=== PATIENT | female | born 1975 | race Caucasian/White ===

== ENCOUNTER 2019-02-05 11:28 | Emergency (ER) | payer OTHER ==
[~2019-02-05] VITALS: Wt 110.0 kg
[~2019-02-05 11:28] MED LIST: PREN1TAB12 PO
[2019-02-05 11:32] VITALS: BP 140/89; PULSE 89; RESP 18
[2019-02-05] MEDS ORDERED: DIAZEPAM 5 MG TAB PO ONE (12:30)
[2019-02-05] MEDS ORDERED: LIDOCAINE 1% (MPF) 5 ML VIAL INFIL ONE (12:30)
[2019-02-05] MEDS ORDERED: SULF1TAB31 PO (13:15)
--- NOTE | 2019-02-05 19:53 | ERD ---
ER Documentation Chief Complaint Chief Complaint POSSIBLE ABCESS ON VAGINAL AREA HPI 43 year old F presents to the ED complaining of a recurrent abscess to her vaginal area, progressively growing and painful for the past 5 days. Pt states she has had these same sx reoccur for the past 5 years, her last abscess was a bout 3 months ago. She states these abscesses usually spontaneously drain but today's abscess is more large and painful than previous. She denies any associated fevers or chills. Denies any urinary symptoms. Denies any other symptoms. Of note, pt also is complaining of increased thirst. ROS All systems reviewed and are negative except as per history of present illness. Medications Home Meds Active Scripts Sulfamethoxazole/Trimethoprim* (Bactrim Ds* Tablet) 1 Each Tablet, 1 TAB PO BID, #14 TAB Prov:MARIE HALE PA-C 02/05/19 Reported Medications Vit/Fe Fumarate/Fa ( 1-1 Tablet) 1 Tab Tablet, 1 TAB PO DAILY 11/19/11 Allergies Allergies: Coded Allergies: acetaminophen (Verified Allergy, Intermediate, 12/27/13) hydrocodone (Verified Allergy, Intermediate, 12/27/13) No Known Allergies (Verified Allergy, Mild, 10/16/09) PMhx/Soc Medical and Surgical Hx: pt denies Medical Hx, pt denies Surgical Hx History of Surgery: No Anesthesia Reaction: No Hx Neurological Disorder: No Hx Respiratory Disorders: No Hx Cardiac Disorders: No Hx Psychiatric Problems: No Hx Miscellaneous Medical Probl: No Hx Alcohol Use: No Hx Substance Use: No Hx Tobacco Use: No Smoking Status: Never smoker FmHx Family History: No diabetes Physical Exam Vitals Vital Signs Date Temp Pulse Resp B/P (MAP) Pulse Ox O2 O2 Flow FiO2 Time Delivery Rate 02/05/19 98.1 89 18 140/89 99 11:32 (106) Physical Exam Const: No acute distress Head: Atraumatic Eyes: Normal Conjunctiva ENT: Normal External Ears, Nose and Mouth. Neck: Full range of motion. No meningismus. Abd: Soft, non tender, non distended. Normal bowel sounds Pelvic Exam: + tender fluctuant mass in the upper right medial labia majora with surrounding erythema. Skin: No petechiae or rashes Neur: Awake and alert Psych: Normal Mood and Affect Results 24 hrs Laboratory Tests Test 02/05/19 12:49 Bedside Glucose 88 mg/dL Current Medications Medications Dose Sig/Roland Start Time Status Last (Trade) Ordered Route PRN Stop Time Admin Dose Reason Admin Lidocaine 5 ml ONCE ONCE 02/05/19 DC (Xylocaine INFIL 12:30 02/05/19 1% (Mpf)) 12:31 Diazepam 5 mg ONCE ONCE 02/05/19 DC 02/05/19 (Valium) PO 12:30 02/05/19 12:26 12:31 Procedures/MDM LABS POC glucose: 88 Abscess Incision and Drainage with irrigation by me: Location: Right upper medial labia majora Anesthesia: 1% lidocaine, local Technique: Area prepped with lidocaine, small incision made with 11 blade scalpel. Packing: None Complications: None MEDICAL DECISION MAKIN yo F presents with recurrent bartholin abscess. Incision and drainage performed with significant amount of foul smelling purulent discharge. Pt had significant improvement status post procedure. She has no fever here and vital signs are normal. I have low suspicion for sepsis, deep space infection, or foreign body. She was discharged home with PO abx. Recommended Epsom salt baths for the next 4 days and PCP follow in one week. May need referral to general surgery for definite treatment of her recurrent abscesses. Strict return precautions discussed. Of note, pt also complained of increased thirst. POC glucose 88. She has no evidence of DM. I have low suspicion for DKA or HHOS. PRESCRIPTIONS: Bactrim SPECIALIST FOLLOW UP RECOMMENDED: general surgery Patient has been advised to follow up with primary care in 1-2 days. Departure Diagnosis: Primary Impression: Bartholin's gland abscess Condition: Stable Patient Instructions: Bartholin's Cyst (I And D) Referrals: [facility] YOU HAVE RECEIVED A MEDICAL SCREENING EXAM AND THE RESULTS INDICATE THAT YOU DO NOT HAVE A CONDITION THAT REQUIRES URGENT TREATMENT IN THE EMERGENCY DEPARTMENT. FURTHER EVALUATION AND TREATMENT OF YOUR CONDITION CAN WAIT UNTIL YOU ARE SEEN IN YOUR DOCTORS OFFICE WITHIN THE NEXT 1-2 DAYS. IT IS YOUR RESPONSIBILITY TO MAKE AN APPOINTMENT FOR FOLOW-UP CARE. IF YOU HAVE A PRIMARY DOCTOR --you should call your primary doctor and schedule an appointment IF YOU DO NOT HAVE A PRIMARY DOCTOR YOU CAN CALL OUR PHYSICIAN REFERRAL HOTLINE AT IF YOU CAN NOT AFFORD TO SEE A PHYSICIAN YOU CAN CHOSE FROM THE FOLLOWING [facility] [address] [place] [facility] [address] [facility] [address] [facility] [address] [facility] [address] [facility]. [facility] [address] [facility]. [facility] YOU HAVE RECEIVED A MEDICAL SCREENING EXAM AND THE RESULTS INDICATE THAT YOU DO NOT HAVE A CONDITION THAT REQUIRES URGENT TREATMENT IN THE EMERGENCY DEPARTMENT. FURTHER EVALUATION AND TREATMENT OF YOUR CONDITION CAN WAIT UNTIL YOU ARE SEEN IN YOUR DOCTORS OFFICE WITHIN THE NEXT 1-2 DAYS. IT IS YOUR RESPONSIBILITY TO MAKE AN APPOINTMENT FOR FOLOW-UP CARE. IF YOU HAVE A PRIMARY DOCTOR --you should call your primary doctor and schedule and appointment IF YOU DO NOT HAVE A PRIMARY DOCTOR YOU CAN CALL OUR PHYSICIAN REFERRAL HOTLINE AT . IF YOU CAN NOT AFFORD TO SEE A PHYSICIAN YOU CAN CHOSE FROM THE FOLLOWING [facility] INSTITUTIONS: [facility] [address] [place] [address] [facility] [address] [place] [address] [facility] + [facility] [address] [place] [address] Additional Instructions: Take the antibiotics for the next 7 days. I recommend Epsom salt baths for at least 10 minutes 2 times a day for the next 4 days. He should see your primary care provider and asked to be referred to general surgery for removal of your Bartholin glands to prevent reinfection and abscesses. Monitor for any fevers or chills. Return here for any new or worsening symptoms. MARIE HALE PA-C Feb 05, 2019 19:53
== END 2019-02-05 13:34 | disposition home or self-care (01) ==
LOC: FTE 11:28
DX: N75.1 Abscess of Bartholin's gland (principal)
CPT/HCPCS: 56420; 82962; Z7502; Z7610

== ENCOUNTER 2019-02-14 11:30 | Emergency (ER) | payer OTHER ==
[~2019-02-14] VITALS: Ht 152.4 cm; Wt 115.0 kg
[~2019-02-14 11:30] MED LIST changes: +SULF1TAB31 PO
[2019-02-14 11:33] VITALS: BP 154/80; PULSE 70; RESP 18; Ht 152.4 cm; Wt 115.0 kg
[2019-02-14] MEDS ORDERED: KETOROLAC 60 MG INJ IM STA (12:15)
--- NOTE | 2019-02-14 12:27 | ERD ---
ER Documentation Chief Complaint Chief Complaint HAD COLONOSCOPY LAST WEDNESDAY, SINCE WEDNESDAY LEG WEAKNESS HPI Patient is a 43 years old female presenting to the clinic for bilateral lower l eg weakness since Wednesday. Patient reports of a colonoscopy and endoscopy on . Patient reports of severe sharp bilateral lower leg pain that starts from her gluteal region. Patient reports of dry mouth with increased water intake. but denies dysuria, urinary frequency/urgency, stool/urinary incontinence. Patient reports taking OTC Ibuprofen without resolution. Patient reports of left lower foot swelling. Patient reports her last lab work-up showed normal sugar levels by her PCP. ROS All systems reviewed and are negative except as per history of present illness. Medications Home Meds Active Scripts Methylprednisolone* (Medrol* DOSE PACK) 4 Mg/Dose-Pack Tab.ds.pk, 4 MG PO . DIRECTED for 5 Days, PACKET Prov:ANH RYAN PA-C 02/14/19 Meloxicam* (Meloxicam*) 7.5 Mg Tablet, 7.5 MG PO DAILY, #30 TAB Prov:ANH RYAN PA-C 02/14/19 Sulfamethoxazole/Trimethoprim* (Bactrim Ds* Tablet) 1 Each Tablet, 1 TAB PO BID, #14 TAB Prov:YUSEFIGRMARIE MALIK PA-C 02/05/19 Reported Medications Vit/Fe Fumarate/Fa ( 1-1 Tablet) 1 Tab Tablet, 1 TAB PO DAILY 11/19/11 Allergies Allergies: Coded Allergies: hydrocodone (Verified Allergy, Intermediate, 12/27/13) codeine (Verified Allergy, Unknown, 02/14/19) PMhx/Soc Medical and Surgical Hx: pt denies Medical Hx, pt denies Surgical Hx History of Surgery: No Anesthesia Reaction: No Hx Neurological Disorder: No Hx Respiratory Disorders: No Hx Cardiac Disorders: No Hx Psychiatric Problems: No Hx Miscellaneous Medical Probl: No Hx Alcohol Use: No Hx Substance Use: No Hx Tobacco Use: No Physical Exam Vitals Vital Signs Date Temp Pulse Resp B/P (MAP) Pulse Ox O2 O2 Flow FiO2 Time Delivery Rate 02/14/19 98.5 70 18 154/80 99 11:33 (104) Physical Exam Const: No acute distress Head: Atraumatic Eyes: Normal Conjunctiva ENT: Normal External Ears, Nose. No lesion noted in oral exam with mild dental carries and discolored right buccal mucosa. Neck: Full range of motion. No meningismus. Resp: Clear to auscultation bilaterally Cardio: Regular rate and rhythm, no murmurs Abd: Soft, non tender, non distended. Normal bowel sounds Skin: No petechiae or rashes Back: Tenderness to mid bilateral gluteal region that follows the sciatic nerve distribution. Ext: No cyanosis, or edema noted. 2+ Pedal pulse bilaterally. Neur: Awake and alert. Sensation intact. Psych: Normal Mood and Affect Results 24 hrs Laboratory Tests Test 02/14/19 12:38 02/14/19 12:39 POC Beta HCG, Qualitative NEGATIVE Bedside Glucose 99 mg/dL Current Medications Medications Dose Sig/Roland Start Time Status Last (Trade) Ordered Route PRN Stop Time Admin Dose Reason Admin 10 mg ONCE ONCE 02/14/19 DC 02/14/19 Dexamethasone IM 12:30 12:47 (Decadron) 02/14/19 12:31 Ketorolac 60 mg ONCE STAT 02/14/19 DC 02/14/19 Tromethamine IM 12:15 12:47 (Toradol) 02/14/19 12:17 Procedures/MDM Patient was seen and evaluated for bilateral lower leg weakness and pain which most likely represents sciatica (bilaterally). Finger glucose reading of 99 and no further workup for diabetes is required. No signs of edema noted and so lower extremity ultrasound withheld. Patient's oral exam was relatively unremarkable with mild hematoma secondary to trauma from Endoscopy. Dry mouth most likely from procedure as well and does not require no further work as there are no signs of leukoplakia. Patient was instructed to f/u with her PCP for further evaluation (possible ENT referral vs GI). Patient reports significant improvement of pain status post dexamethasone and Toradol IM. Patient is stable and ready for discharge. Departure Diagnosis: Primary Impression: Sciatica Laterality: bilateral Qualified Codes: M54.31 - Sciatica, right side; M54.32 - Sciatica, left side Condition: Stable Patient Instructions: Back Pain W/ Sciatica, Understanding Sciatica Referrals: [facility] Additional Instructions: Patient advised to return to the ED immediately for new or worsening symptoms. Patient advised to follow up with primary care provider in the next 24-48 hours. Patient verbalized understanding and agrees with treatment plan and course of action. If patient has no primary care they may follow up with [facility] + [address] [place] [address] or [facility] [address] [place] [address] or [facility] [address] [place] [address] ANH RYAN PA-C Feb 14, 2019 12:27
[2019-02-14] MEDS ORDERED: DEXAMETHASONE 10 MG/ML 1 ML INJ IM ONE (12:30)
[2019-02-14] MEDS ORDERED: MELO7.5T38 PO (13:22)
[2019-02-14] MEDS ORDERED: MED4DP PO (13:22)
== END 2019-02-14 13:35 | disposition home or self-care (01) ==
LOC: FTE 11:30
DX: M54.31 Sciatica, right side (principal); M54.32 Sciatica, left side
CPT/HCPCS: 81025; 82962; 96372; J1100; J1885; Z7502

== ENCOUNTER 2019-02-15 19:43 | Inpatient (IN) | payer OTHER ==
[~2019-02-15] VITALS: Ht 162.6 cm; Wt 120.7 kg
[~2019-02-15 19:43] MED LIST changes: +MED4DP PO; +MELO7.5T38 PO
[2019-02-15] MEDS ORDERED: morphine 4 MG/ML VIAL IV STA (23:00)
[2019-02-15] MEDS ORDERED: DEXAMETHASONE 4 MG/ML 1 ML INJ IV ONE (23:00)
[2019-02-15] MEDS ORDERED: ONDANSETRON 4 MG INJ IV STA (23:00)
--- NOTE | 2019-02-16 02:19 | ERD ---
ER Documentation Chief Complaint Chief Complaint STATES NUMB/ WEAK FROM WAIST DOWN. SEEN YESTERDAY FOR SAME HPI This is a 43 female who comes in with complaints of numbness and weakness from the waist down. She was seen yesterday and diagnosed with sciatica but that is gotten worse. She denies any bowel or bladder incontinence or bowel or bladder retention. She states pain is mild to moderate to severe in intensity depending on the time of day movements associated. No fevers no chills. No other current complaints. ROS All systems reviewed and are negative except as per history of present illness. Medications Home Meds Discontinued Reported Medications Vit/Fe Fumarate/Fa ( 1-1 Tablet) 1 Tab Tablet, 1 TAB PO DAILY 11/19/11 Discontinued Scripts Methylprednisolone* (Medrol* DOSE PACK) 4 Mg/Dose-Pack Tab.ds.pk, 4 MG PO . DIRECTED for 5 Days, PACKET Prov:ANH RYAN PA-C 02/14/19 Meloxicam* (Meloxicam*) 7.5 Mg Tablet, 7.5 MG PO DAILY, #30 TAB Prov:ANH RYAN PA-C 02/14/19 Sulfamethoxazole/Trimethoprim* (Bactrim Ds* Tablet) 1 Each Tablet, 1 TAB PO BID, #14 TAB Prov:MARIE HALE PA-C 02/05/19 Allergies Allergies: Coded Allergies: hydrocodone (Unverified Allergy, Intermediate, 02/16/19) codeine (Unverified Allergy, Unknown, 02/16/19) PMhx/Soc History of Surgery: No Anesthesia Reaction: No Hx Neurological Disorder: No Hx Respiratory Disorders: No Hx Cardiac Disorders: No Hx Psychiatric Problems: No Hx Miscellaneous Medical Probl: No Hx Alcohol Use: No Hx Substance Use: No Hx Tobacco Use: No Smoking Status: Never smoker Physical Exam Vitals Vital Signs Date Temp Pulse Resp B/P (MAP) Pulse Ox O2 O2 Flow FiO2 Time Delivery Rate 02/16/19 76 62 111/60 100 Room Air 02:01 (77) 02/16/19 61 20 123/85 98 Room Air 00:58 (98) 02/15/19 58 16 134/82 100 Room Air 23:32 (99) 02/15/19 98.2 66 18 158/80 97 19:45 (106) Physical Exam Const: No acute distress Head: Atraumatic Eyes: Normal Conjunctiva ENT: Normal External Ears, Nose and Mouth. Neck: Full range of motion. No meningismus. Resp: Clear to auscultation bilaterally Cardio: Regular rate and rhythm, no murmurs Abd: Soft, non tender, non distended. Normal bowel sounds Skin: No petechiae or rashes Back: No midline or flank tenderness Ext: No cyanosis, or edema Neur: Awake and alert Psych: Normal Mood and Affect Result Diagram: 02/15/19222902/15/192229 Results 24 hrs Laboratory Tests Test 02/15/19 22:30 02/15/19 22:50 White Blood Count 14.5 10^3/ul Red Blood Count 4.21 10^6/ul Hemoglobin 11.8 g/dl Hematocrit 35.0 % Mean Corpuscular Volume 83.1 fl Mean Corpuscular Hemoglobin 28.0 pg Mean Corpuscular Hemoglobin Concent 33.7 g/dl Red Cell Distribution Width 13.7 % Platelet Count 223 10^3/UL Mean Platelet Volume 10.9 fl Immature Granulocytes % 0.800 % Neutrophils % 70.8 % Lymphocytes % 22.2 % Monocytes % 5.7 % Eosinophils % 0.1 % Basophils % 0.4 % Nucleated Red Blood Cells % 0.0 /100WBC Immature Granulocytes # 0.110 10^3/ul Neutrophils # 10.3 10^3/ul Lymphocytes # 3.2 10^3/ul Monocytes # 0.8 10^3/ul Eosinophils # 0.0 10^3/ul Basophils # 0.1 10^3/ul Nucleated Red Blood Cells # 0.0 10^3/ul Prothrombin Time 12.7 Sec Prothrombin Time Ratio 1.0 INR International Normalized Ratio 0.94 Activated Partial Thromboplast Time 24.0 Sec Sodium Level 141 mmol/L Potassium Level 3.9 mmol/L Chloride Level 111 mmol/L Carbon Dioxide Level 22 mmol/L Anion Gap 8 Blood Urea Nitrogen 19 mg/dl Creatinine 0.88 mg/dl Est Glomerular Filtrat Rate mL/min > 60 mL/min Glucose Level 118 mg/dl Calcium Level 9.1 mg/dl Troponin I < 0.012 ng/ml POC Beta HCG, Qualitative NEGATIVE Current Medications Medications Dose Sig/Roland Start Time Status Last (Trade) Ordered Route PRN Stop Time Admin Dose Reason Admin Morphine 4 mg ONCE STAT 02/15/19 DC 02/15/19 Sulfate IV 23:00 23:11 (morphine) 02/15/19 23:01 Ondansetron 4 mg ONCE STAT 02/15/19 DC 02/15/19 HCl (Zofran IV 23:00 23:11 Inj) 02/15/19 23:01 4 mg ONCE ONCE 02/15/19 DC 02/15/19 Dexamethasone IV 23:00 23:11 (Decadron) 02/15/19 23:01 Procedures/MDM EKG: Rate/Rhythm: [Normal Sinus Rhythm] QRS, ST, T-waves: [No changes consistent w/ acute ischemia] Impression: [No evidence of ischemia or arrhythmia] Chest X-ray 1V Interpreted by me: Soft Tissue: No acute abnormalities Bones: No acute abnormalities Mediastinum/Cardiac Silhouette/Lungs: [No acute abnormalities] medical decision making: This is a very pleasant patient who comes in with what looks to be lumbar stenosis severe abdominal back pain. CT does show lumbar stenosis. Patient will be admitted to Dr. Reese. A consult has been put in for Dr. Monroe as well to see the patient. This is not an emergent consult but is an urgent consult. has not made aware. Patient made aware as well. No evidence of cauda equina syndrome on serial exams here in the ER Departure Diagnosis: Primary Impression: Numbness Condition: Stable FREDERIC MC Feb 16, 2019 02:19
[2019-02-16 02:30] VITALS: BP 151/61; PULSE 58; RESP 19; Ht 162.6 cm; Wt 120.7 kg
[2019-02-16] MEDS ORDERED: ONDANSETRON 4 MG INJ IV PRN (07:00)
[2019-02-16] MEDS: DEXAMETHASONE 4 MG TAB PO SCH ×4 (08:46→23:19)
[2019-02-16] MEDS: KETOROLAC 30 MG INJ IV PRN (08:48)
[2019-02-16 08:52] VITALS: BP 118/62; PULSE 71; RESP 20
[2019-02-16] MEDS: morphine 2 MG INJ IV PRN ×5 (11:09→23:20)
[2019-02-16 15:03] VITALS: BP 101/65; PULSE 65; RESP 18
[2019-02-16] MEDS: ACETAMINOPHEN 500 MG TAB PO PRN (15:13)
--- NOTE | 2019-02-16 16:56 | HP ---
Date/Time of Note Date/Time of Note DATE: 02/16/19 TIME: 16:56 Assessment/Plan VTE Prophylaxis Risk score (from Ns)>0 risk: 3 SCD applied (from Ns): Yes Pharmacological prophylaxis: NA/contraindicated Pharm contraindication: low risk/ambulating Lines/Catheters IV [facility]ter [facility]from [facility] Saline Lock Assessment/Plan Hospital Course Morbidly obese 43 years old female presenting with bilateral weakness and numbness in the setting of lumbosacral spinal disease. Admit to [facility] floor PT OT Lumbar spine MRI Neurosurgery consultation Dexamethasone p.o. Pantoprazole for GI prophylaxis given steroid use and history of gastritis Pain and nausea management SCDs for DVT prophylaxis Problems: (1) Weakness of both legs (2) Back pain (3) Numbness in both legs (4) Lumbar foraminal stenosis (5) Spinal stenosis of lumbosacral region (6) Lumbar disc disease (7) Morbid obesity with BMI of 45.0-49.9, adult Result Diagram: 02/15/19222902/15/190 Results 24hrs Laboratory Tests Test 02/15/19 22:30 02/15/19 22:50 02/16/19 11:50 02/16/19 12:57 White Blood Count 14.5 H Red Blood Count 4.21 Hemoglobin 11.8 L Hematocrit 35.0 L Mean Corpuscular 83.1 Volume Mean Corpuscular 28.0 L Hemoglobin Mean Corpuscular 33.7 Hemoglobin Concent Red Cell 13.7 Distribution Width Platelet Count 223 Mean Platelet Volume 10.9 H Immature 0.800 H Granulocytes % Neutrophils % 70.8 Lymphocytes % 22.2 Monocytes % 5.7 Eosinophils % 0.1 Basophils % 0.4 Nucleated Red Blood 0.0 Cells % Immature 0.110 H Granulocytes # Neutrophils # 10.3 H Lymphocytes # 3.2 H Monocytes # 0.8 Eosinophils # 0.0 Basophils # 0.1 Nucleated Red Blood 0.0 Cells # Prothrombin Time 12.7 Prothrombin Time 1.0 Ratio INR International 0.94 Normalized Ratio Activated 24.0 Partial Thromboplast Time Sodium Level 141 Potassium Level 3.9 Chloride Level 111 H Carbon Dioxide Level 22 Anion Gap 8 Blood Urea Nitrogen 19 Creatinine 0.88 Est Glomerular > 60 Filtrat Rate mL/min Glucose Level 118 Calcium Level 9.1 Troponin I < 0.012 POC Beta HCG, NEGATIVE Qualitative Urine Color YELLOW Urine Clarity CLOUDY A Urine pH 6.0 Urine Specific 1.023 [place] Urine Ketones NEGATIVE Urine Nitrite NEGATIVE Urine Bilirubin NEGATIVE Urine Urobilinogen 1+ H Urine Leukocyte 2+ H Esterase Urine Microscopic 2 RBC Urine Microscopic 14 H WBC Urine Squamous MODERATE Epithelial Cells Urine Bacteria FEW A Urine Hemoglobin 1+ H Urine Glucose NEGATIVE Urine Total Protein NEGATIVE Urine Opiates Screen Positive Urine Barbiturates Negative Urine Amphetamines Negative Screen Urine Negative Benzodiazepines Screen Urine Cocaine Screen Negative Urine Cannabinoids Negative Erythrocyte 10 Sedimentation Rate C-Reactive Protein 0.7 HPI/ROS Admit Date/Time Admit Date/Time Feb 16, 2019 at 00:51 Hx of Present Illness 43 years old female with history of morbid obesity, gastritis, who presents with bilateral leg weakness and numbness associated with radicular lumbar pain for the past 7 days. She had EGD and colonoscopy done as outpatient by Dr. Lind given family history of gastric cancer. 2 days after the procedure she noticed back pain and associated weakness /numbness in her legs. He presented to the emergency room with the same symptoms earlier this week but she was discharged directly to home. She denies IV drug abuse, fever, chills. She reports history of trauma to her back as a result of a fall 5 years ago. Denies personal history of cancer, she endorses family history of gastric cancer. Denies saddle anesthesia. Denies change in urination or bowel habits. CT of the lumbar spine in the emergency room showed multilevel neural foraminal stenosis as well as canal stenosis with degenerative disc disease. Patient was admitted for further evaluation and treatment of bilateral weakness in the setting of lumbosacral radiculopathy. Neurosurgery Dr. Monroe was consulted. PMH/Family/Social Past Medical History Medications Current Medications Dexamethasone (Decadron) 4 mg Q6 PO Last administered on 02/16/19at 11:09; Admin Dose 4 MG; Start 02/16/19 at 07:00 Ondansetron HCl (Zofran Inj) 4 mg Q4H PRN IV NAUSEA AND/OR VOMITING; Start 02/16/19 at 07:00 Morphine Sulfate (morphine) 2 mg Q2H PRN IV MODERATE PAIN Last administered on 02/16/19at 15:14; Admin Dose 2 MG; Start 02/16/19 at 07:00 Acetaminophen (Tylenol Tab) 1,000 mg Q6H PRN PO MILD PAIN(1-3)OR ELEVATED TEMP Last administered on 02/16/19at 15:13; Admin Dose 1,000 MG; Start 02/16/19 at 07:00 Ketorolac Tromethamine (Toradol) 30 mg Q6H PRN IV PAIN LEVEL 1-3 Last administered on 02/16/19at 08:48; Admin Dose 30 MG; Start 02/16/19 at 07:00; Stop 02/19/19 at 06:59 Coded Allergies: hydrocodone (Unverified Allergy, Intermediate, 02/16/19) codeine (Unverified Allergy, Unknown, 02/16/19) Social History Smoking Status: Never smoker Exam/Review of Systems Vital Signs Vitals Vital Signs Date Temp Pulse Resp B/P (MAP) Pulse Ox O2 O2 Flow FiO2 Time Delivery Rate 02/16/19 97.7 65 18 101/65 95 15:03 (77) 02/16/19 Room Air 02:01 Exam Exam Gen.: In no acute distress, pleasant and cooperative Eyes: Anicteric, conjunctiva normal, PERRLA, EOM intact HEENT: Normocephalic, atraumatic, hearing grossly intact, oral mucosa moist, no oral lesions Neck: Supple, no masses, trachea midline Cardiovascular: Regular rate and rhythm, no peripheral edema, no murmurs, no gallops, no rubs Respiratory: Clear to auscultation bilaterally, no use of accessory muscles of respiration, no wheezes, expiration not prolonged Extremities: No cyanosis, no edema, no calf tenderness, pulses bilaterally palpable, extremities warm and perfused Abdomen: Soft, not distended, nontender, bowel sounds present, no guarding, no rebound Neurological: Alert and oriented x3, speech normal, CN 2-12 no deficit, mild bilateral lower extremity slightly worse on the right side, bilateral below-knee numbness to light palpation, no deficit in temperature sensation, no saddle anesthesia : No Barbosa catheter Dermatologic no rash, no ulcers Heme: No acute bleeding, no ecchymosis or petechia Psych: No anxiety depression, mood and affect appropriate ADA ESTRADA MD Feb 16, 2019 16:56
[2019-02-16] MEDS ORDERED: PANTOPRAZOLE (EC) 40 MG TAB PO ONE (17:30)
[2019-02-16 20:11] VITALS: BP 116/57; PULSE 70; RESP 20
[2019-02-17 02:41] VITALS: BP 119/75; RESP 18
[2019-02-17] MEDS: morphine 2 MG INJ IV PRN ×7 (04:00→21:22)
[2019-02-17] MEDS: DEXAMETHASONE 4 MG TAB PO SCH ×4 (05:43→23:54)
[2019-02-17] MEDS: PANTOPRAZOLE (EC) 40 MG TAB PO SCH (05:43)
[2019-02-17 08:49] VITALS: BP 99/55; PULSE 60; RESP 18
[2019-02-17] MEDS: ACETAMINOPHEN 500 MG TAB PO PRN ×2 (11:23→18:10)
[2019-02-17 15:23] VITALS: BP 111/61; PULSE 71; RESP 16
[2019-02-17] MEDS: KETOROLAC 30 MG INJ IV PRN (16:37)
--- NOTE | 2019-02-17 20:42 | PN ---
Date/Time of Note Date/Time of Note DATE: 02/17/19 TIME: 20:37 Assessment/Plan VTE Prophylaxis Risk score (from Nsg)>0 risk: 3 SCD applied (from Nsg): Yes Pharmacological prophylaxis: heparin Lines/Catheters IV Catheter Type (from Nrsg): Saline Lock Assessment/Plan Hospital Course Morbidly obese 43 years old female presenting with bilateral weakness and numbness in the setting of lumbosacral spinal disease. She was able to walk to the bathroom independently . Neurosurgery Dr Monroe was consulted by ED and admitting MD unfortunately patient was not evaluated . She did not fit in the MRI machine. I asked Dr Escobar to see her PT OT Lumbar spine MRI if possible as outpatient Neurosurgery consultation to Dr Escobar Dexamethasone p.o. Pantoprazole for GI prophylaxis given steroid use and history of gastritis Pain and nausea management SCDs for DVT prophylaxis Problems: (1) Lumbar foraminal stenosis (2) Spinal stenosis of lumbosacral region (3) Lumbar disc disease (4) Morbid obesity with BMI of 45.0-49.9, adult (5) Weakness of both legs (6) Numbness in both legs (7) Back pain Result Diagram: 02/17/1912 02/17/19 0512 Results 24hrs Laboratory Tests Test 02/17/19 05:12 White Blood Count 13.5 H Red Blood Count 4.42 Hemoglobin 12.1 Hematocrit 36.7 L Mean Corpuscular Volume 83.0 Mean Corpuscular Hemoglobin 27.4 L Mean Corpuscular Hemoglobin Concent 33.0 Red Cell Distribution Width 13.6 Platelet Count 224 Mean Platelet Volume 11.7 H Immature Granulocytes % 1.000 H Neutrophils % 86.0 H Lymphocytes % 9.9 L Monocytes % 3.0 Eosinophils % 0.0 Basophils % 0.1 Nucleated Red Blood Cells % 0.0 Immature Granulocytes # 0.130 H Neutrophils # 11.6 H Lymphocytes # 1.3 Monocytes # 0.4 Eosinophils # 0.0 Basophils # 0.0 Nucleated Red Blood Cells # 0.0 Sodium Level 140 Potassium Level 5.0 Chloride Level 108 Carbon Dioxide Level 25 Anion Gap 7 Blood Urea Nitrogen 20 Creatinine 0.88 Est Glomerular Filtrat Rate mL/min > 60 Glucose Level 239 #H Calcium Level 9.3 Phosphorus Level 3.8 Magnesium Level 2.2 Total Bilirubin 0.3 Direct Bilirubin 0.00 Indirect Bilirubin 0.3 Aspartate Amino Transf (AST/SGOT) 22 Alanine Aminotransferase (ALT/SGPT) 35 Alkaline Phosphatase 52 Total Protein 6.8 Albumin 3.8 Globulin 3.00 Albumin/Globulin Ratio 1.26 Exam/Review of Systems Exam Vitals Vital Signs Date Temp Pulse Resp B/P (MAP) Pulse Ox O2 O2 Flow FiO2 Time Delivery Rate 02/17/19 97.4 71 16 111/61 96 15:23 (78) 02/17/19 Room Air 08:49 Intake and Output 02/16/19 02/16/19 02/17/19 1515:00 23:00 07:00 IntakeIntake Total 680 ml 440 ml OutputOutput Total 100 ml 350 ml BalanceBalance 580 ml 90 ml Exam Gen.: In no acute distress, pleasant and cooperative Eyes: Anicteric, conjunctiva normal, PERRLA, EOM intact HEENT: Normocephalic, atraumatic, hearing grossly intact, oral mucosa moist, no oral lesions Neck: Supple, no masses, trachea midline Cardiovascular: Regular rate and rhythm, no peripheral edema, no murmurs, no gallops, no rubs Respiratory: Clear to auscultation bilaterally, no use of accessory muscles of respiration, no wheezes, expiration not prolonged Extremities: No cyanosis, no edema, no calf tenderness, pulses bilaterally palpable, extremities warm and perfused Abdomen: Soft, not distended, nontender, bowel sounds present, no guarding, no rebound Neurological: Alert and oriented x3, speech normal, CN 2-12 no deficit, mild bilateral lower extremity slightly worse on the right side, bilateral below-knee numbness to light palpation, no deficit in temperature sensation, no saddle anesthesia : No Barbosa catheter Dermatologic no rash, no ulcers Heme: No acute bleeding, no ecchymosis or petechia Psych: No anxiety depression, mood and affect appropriate Results Results 24hrs Laboratory Tests Test 02/17/19 05:12 White Blood Count 13.5 H Red Blood Count 4.42 Hemoglobin 12.1 Hematocrit 36.7 L Mean Corpuscular Volume 83.0 Mean Corpuscular Hemoglobin 27.4 L Mean Corpuscular Hemoglobin Concent 33.0 Red Cell Distribution Width 13.6 Platelet Count 224 Mean Platelet Volume 11.7 H Immature Granulocytes % 1.000 H Neutrophils % 86.0 H Lymphocytes % 9.9 L Monocytes % 3.0 Eosinophils % 0.0 Basophils % 0.1 Nucleated Red Blood Cells % 0.0 Immature Granulocytes # 0.130 H Neutrophils # 11.6 H Lymphocytes # 1.3 Monocytes # 0.4 Eosinophils # 0.0 Basophils # 0.0 Nucleated Red Blood Cells # 0.0 Sodium Level 140 Potassium Level 5.0 Chloride Level 108 Carbon Dioxide Level 25 Anion Gap 7 Blood Urea Nitrogen 20 Creatinine 0.88 Est Glomerular Filtrat Rate mL/min > 60 Glucose Level 239 #H Calcium Level 9.3 Phosphorus Level 3.8 Magnesium Level 2.2 Total Bilirubin 0.3 Direct Bilirubin 0.00 Indirect Bilirubin 0.3 Aspartate Amino Transf (AST/SGOT) 22 Alanine Aminotransferase (ALT/SGPT) 35 Alkaline Phosphatase 52 Total Protein 6.8 Albumin 3.8 Globulin 3.00 Albumin/Globulin Ratio 1.26 Medications Medication Current Medications Dexamethasone (Decadron) 4 mg Q6 PO Last administered on 02/17/19 18:03; Admin Dose 4 MG; Start 02/16/19 at 07:00 Ondansetron HCl (Zofran Inj) 4 mg Q4H PRN IV NAUSEA AND/OR VOMITING; Start 02/16/19 at 07:00 Morphine Sulfate (morphine) 2 mg Q2H PRN IV MODERATE PAIN Last administered on 02/17/19 18:04; Admin Dose 2 MG; Start 02/16/19 at 07:00 Acetaminophen (Tylenol Tab) 1,000 mg Q6H PRN PO MILD PAIN(1-3)OR ELEVATED TEMP Last administered on 02/17/19 18:10; Admin Dose 1,000 MG; Start 02/16/19 at 07:00 Ketorolac Tromethamine (Toradol) 30 mg Q6H PRN IV PAIN LEVEL 1-3 Last administered on 02/17/19 16:37; Admin Dose 30 MG; Start 02/16/19 at 07:00; Stop 02/19/19 at 06:59 Pantoprazole (Protonix Tab) 40 mg DAILY@06 PO Last administered on 02/17/19 05:43; Admin Dose 40 MG; Start 02/17/19 at 06:00 ADA ESTRADA MD Feb 17, 2019 20:42
[2019-02-17] MEDS: HEPARIN 5,000 UNIT/1 ML VIAL SC SCH (21:05)
[2019-02-17 21:26] VITALS: BP 119/60; PULSE 87; RESP 18
[2019-02-18 02:15] VITALS: BP 133/62; PULSE 72; RESP 18
[2019-02-18] MEDS: morphine 2 MG INJ IV PRN ×6 (02:15→16:38)
[2019-02-18] MEDS: PANTOPRAZOLE (EC) 40 MG TAB PO SCH (05:14)
[2019-02-18] MEDS: DEXAMETHASONE 4 MG TAB PO SCH (05:14)
[2019-02-18 08:30] VITALS: BP 105/57; PULSE 60; RESP 20
[2019-02-18] MEDS ORDERED: GABAPENTIN 300 MG CAP GTB SCH (09:30)
[2019-02-18] MEDS ORDERED: METHYLPREDNISOLONE 4 MG TAB PO SCH (09:30)
[2019-02-18] MEDS ORDERED: METHYLPREDNISOLONE (MEDROL) DOSE PACK PO SCH (09:30)
--- NOTE | 2019-02-18 09:39 | CONS ---
Assessment/Plan Assessment/Plan Assessment/Plan (Daily) Date of consultation: 02/18/2019 Requesting physician: Dr. Abbie Martinez Consulting service: Neurosurgery This is a 43-year-old female with reported history of gastritis, baseline nausea who apparently underwent EGD and colonoscopy testing a week ago. The patient says that the day after this procedure she felt axial low back pain, bilateral lower extremity paresthesias pain and her knees buckled and she fell. The patient later on presented to the emergency department was evaluated and was discharged. Since then the patient has had several further episodes of bilateral lower extremity paresthesias and pain and presented again to the emergency department when she was admitted to the hospital for further evaluation. The patient has started receiving physical therapy and has ambulated a bit around her room but she still feels bilateral lower extremity paresthesias and tingling on a intermittent basis. The patient denies any prior history of low back pain before the onset of the symptoms a week ago. She currently denies bowel or bladder dysfunction. She does not report focal upper or lower extremity weakness or numbness. She has not been evaluated for the symptoms in the past by any other energy conservation specialist. She denies any trauma to her low back or her lower extremities previously. The patient was able to receive a CT of the lumbar spine without contrast. However due to the patient's large body habitus she would not fit in the MRI machine and an MRI could not be done. Past medical history: Morbid obesity, please see above. Allergies: Codeine?, Hydrocodone? Family history: GI cancer Social history: Denies use of tobacco, EtOH, illicit or recreational drugs. Review of systems: Denies chest pain, shortness of breath. The patient has nausea and heartburn at baseline. Denies loss of consciousness, convulsions, seizures. Please see above for pertinent positives and negatives. Physical examination: This is a young female sitting up in bed in no apparent distress. She is very pleasant. She is obese. Her language is fluent. She is awake alert and oriented x4. Her face is symmetric. Extraocular movements are grossly intact. Muscle bulk and tone is normal bilateral upper and lower extremities. Deep tendon reflexes are 1+ bilateral upper and lower extremity's. Motor strength is 5- out of 5 bilateral upper and lower extremities proximally and distally. Sensation to light touch is grossly normal bilateral upper and lower extremities. There is no Alberto sign present. Toes are downgoing bilaterally. There is no dysdiadochokinesia. Examination of the patient's lumbar spine reveals mild to moderate tenderness at the lumbosacral junction and midline and over the paraspinal regions bilaterally. There is no tenderness over the posterior superior iliac spine regions bilaterally. Straight leg raise more than 20 degrees bilaterally causes low back pain and some pain radiating to the posterior thighs on the respective tested side. The patient is able to stand for about 2 to 3 minutes before needing to sit due to low back pain. She is able to take a few steps with good balance. However, the patient becomes grossly short of breath with standing and taking a few steps. Imaging: CT of the lumbar spine without contrast: No gross evidence of fracture or subluxation noted. There is loss of the patient's normal lumbar lordosis and there is straightening of the lumbar spine. Advanced arthritic changes more than would be expected for the patient's relatively young age including L3-4 and L5-S1 degenerative disc disease with vacuum phenomenon, L3-4, L4-5 and L5-S1 facet arthropathy and hypertrophy associated with vacuum phenomenon. These findings result in variable degrees of foraminal stenosis at these levels putting some pressure on pressure on the exiting L3, L4 and L5 nerve roots. Assessment of the central canal is difficult on a CT scan alone. Assessment/plan: I reviewed the above imaging studies in detail with the january ent. It is likely that the patient is experiencing bilateral lumbar radiculopathy that is associated with her advanced multilevel degenerative disc disease and facet arthropathy together with multilevel foraminal stenosis. The patient has not had any conservative treatments for this pathology yet. The patient would benefit from aggressive inpatient and subsequently outpatient ph ysical therapy with emphasis put on core strengthening and lower extremity strengthening and range of motion. The patient will also need to be set up with outpatient MRI of the lumbar spine at the facility that could accommodate her large body habitus. If her symptoms continue, she can also be evaluated by interventional pain management on an outpatient basis. Once her MRI of the lumbar spine is done she can also follow-up with me on an outpatient basis. In the meantime, I would recommend that the patient be started on a Medrol Dosepak, oral NSAID medication i.e. Motrin, and gabapentin starting at 300 mg a day for 3 days, if tolerating to increase to twice daily x3 days and if tolerating to increase to 3 times daily. She should also continue with physical therapy. From a neurosurgery perspective the patient may be discharged as soon as she is more comfortable. Lastly, the patient appears to be grossly short of breath even with standing and taking a few steps, the etiology of the patient's short of breath is unclear to me. Further evaluation of the shortness of breath will be deferred to the hospitalist service. MYAH AGUIRRE MD Feb 18, 2019 09:39
[2019-02-18] MEDS: IBUPROFEN 800 MG TAB NGT SCH ×2 (10:17→14:33)
[2019-02-18] MEDS: HEPARIN 5,000 UNIT/1 ML VIAL SC SCH (10:18)
--- NOTE | 2019-02-18 12:05 | PN ---
Date/Time of Note Date/Time of Note DATE: 02/18/19 TIME: 12:03 Assessment/Plan VTE Prophylaxis Risk score (from Nsg)>0 risk: 4 SCD applied (from Ns): Yes SCD contraindicated: low risk/ambulating Pharmacological prophylaxis: LMWH Lines/Catheters IV Catheter Type (from Nrsg): Saline Lock Assessment/Plan Assessment/Plan 1, low back pain, imoproived 2. likely spinal stenosis, foraminal stenosis, buyt responding medical therapy, plan outpatient mri and follow up with dr eubanks 3. d/c home Result Diagram: 02/18/19 0704 02/18/19 0704 Results 24hrs Laboratory Tests Test 02/18/19 07:04 White Blood Count 14.9 H Red Blood Count 4.78 Hemoglobin 13.3 Hematocrit 39.8 Mean Corpuscular Volume 83.3 Mean Corpuscular Hemoglobin 27.8 L Mean Corpuscular Hemoglobin Concent 33.4 Red Cell Distribution Width 13.4 Platelet Count 226 Mean Platelet Volume 12.0 H Immature Granulocytes % 1.900 H Neutrophils % 84.9 H Lymphocytes % 8.9 L Monocytes % 4.1 Eosinophils % 0.0 Basophils % 0.2 Nucleated Red Blood Cells % 0.0 Immature Granulocytes # 0.280 H Neutrophils # 12.7 H Lymphocytes # 1.3 Monocytes # 0.6 Eosinophils # 0.0 Basophils # 0.0 Nucleated Red Blood Cells # 0.0 Sodium Level 139 Potassium Level 4.3 Chloride Level 104 Carbon Dioxide Level 26 Anion Gap 9 Blood Urea Nitrogen 27 H Creatinine 0.96 Est Glomerular Filtrat Rate mL/min > 60 Glucose Level 221 H Calcium Level 9.2 Phosphorus Level 4.0 Magnesium Level 2.2 Total Bilirubin 0.4 Direct Bilirubin 0.00 Indirect Bilirubin 0.4 Aspartate Amino Transf (AST/SGOT) 17 Alanine Aminotransferase (ALT/SGPT) 33 Alkaline Phosphatase 59 Total Protein 7.4 Albumin 3.9 Globulin 3.50 H Albumin/Globulin Ratio 1.11 Subjective 24 Hr Interval Summary Free Text/Dictation NO COMPLAINTS, PAIN MUCH IMPROVED, AMBULATING WITHOUT DIFFICULTY Exam/Review of Systems Exam Vitals Vital Signs Date Temp Pulse Resp B/P (MAP) Pulse Ox O2 O2 Flow FiO2 Time Delivery Rate 02/18/19 97.9 60 20 105/57 97 Room Air 08:30 (73) Intake and Output 02/17/19 02/17/1902/18/19 1515:00 23:00 07:00 IntakeIntake Total 480 ml 360 ml 400 ml BalanceBalance 480 ml 360 ml 400 ml Exam nad soft nt, ctab Results Results 24hrs Laboratory Tests Test 02/18/19 07:04 White Blood Count 14.9 H Red Blood Count 4.78 Hemoglobin 13.3 Hematocrit 39.8 Mean Corpuscular Volume 83.3 Mean Corpuscular Hemoglobin 27.8 L Mean Corpuscular Hemoglobin Concent 33.4 Red Cell Distribution Width 13.4 Platelet Count 226 Mean Platelet Volume 12.0 H Immature Granulocytes % 1.900 H Neutrophils % 84.9 H Lymphocytes % 8.9 L Monocytes % 4.1 Eosinophils % 0.0 Basophils % 0.2 Nucleated Red Blood Cells % 0.0 Immature Granulocytes # 0.280 H Neutrophils # 12.7 H Lymphocytes # 1.3 Monocytes # 0.6 Eosinophils # 0.0 Basophils # 0.0 Nucleated Red Blood Cells # 0.0 Sodium Level 139 Potassium Level 4.3 Chloride Level 104 Carbon Dioxide Level 26 Anion Gap 9 Blood Urea Nitrogen 27 H Creatinine 0.96 Est Glomerular Filtrat Rate mL/min > 60 Glucose Level 221 H Calcium Level 9.2 Phosphorus Level 4.0 Magnesium Level 2.2 Total Bilirubin 0.4 Direct Bilirubin 0.00 Indirect Bilirubin 0.4 Aspartate Amino Transf (AST/SGOT) 17 Alanine Aminotransferase (ALT/SGPT) 33 Alkaline Phosphatase 59 Total Protein 7.4 Albumin 3.9 Globulin 3.50 H Albumin/Globulin Ratio 1.11 Medications Medication Current Medications Ondansetron HCl (Zofran Inj) 4 mg Q4H PRN IV NAUSEA AND/OR VOMITING; Start 02/16/19 at 07:00 Morphine Sulfate (morphine) 2 mg Q2H PRN IV MODERATE PAIN Last administered on 02/18/19at 10:19; Admin Dose 2 MG; Start 02/16/19 at 07:00 Acetaminophen (Tylenol Tab) 1,000 mg Q6H PRN PO MILD PAIN(1-3)OR ELEVATED TEMP Last administered on 02/17/19at 18:10; Admin Dose 1,000 MG; Start 02/16/19 at 07:00 Pantoprazole (Protonix Tab) 40 mg DAILY@06 PO Last administered on 02/18/19at 05:14; Admin Dose 40 MG; Start 02/17/19 at 06:00 Heparin Sodium (Porcine) (Heparin (5000 Units/1ml)) 5,000 unit BID SC Last administered on 02/18/19 10:18; Admin Dose 5,000 UNIT; Start 02/17/19 at 21:00 Ibuprofen (Motrin) 800 mg Q8 NGT Last administered on 02/18/19 10:17; Admin Dose 800 MG; Start 02/18/19 at 09:30 Gabapentin (Neurontin) 300 mg QAM GTB Last administered on 02/18/19 10:17; Admin Dose 300 MG; Start 02/18/19 at 09:30 Methylprednisolone (Medrol) 4 mg AC BREAKFAST PO ; Start 02/19/19 at 07:30; Stop 02/23/19 at 07:31 Methylprednisolone (Medrol) 4 mg PC LUNCH PO ; Start 02/19/19 at 13:00; Stop 02/21/19 at 13:01 Methylprednisolone (Medrol) 4 mg PC DINNER PO ; Start 02/19/19 at 19:05; Stop 02/20/19 at 19:06 Methylprednisolone (Medrol) 8 mg HS PO ; Start 02/19/19 at 21:00; Stop 02/19/19 at 21:01 Methylprednisolone (Medrol) 4 mg HS PO ; Start 02/20/19 at 21:00; Stop 02/22/19 at 21:01 Methylprednisolone (Medrol) 24 mg ONCE PO Last administered on 02/18/19 10:19; Admin Dose 24 MG; Start 02/18/19 at 09:30; Stop 02/18/19 at 23:45 LALITA SILVER MD Feb 18, 2019 12:05
[2019-02-18] MEDS ORDERED: PANT40TA4 PO (12:09)
[2019-02-18] MEDS ORDERED: MED4DP PO (12:09)
[2019-02-18] MEDS ORDERED: IBUP800T48 NGT (12:09)
[2019-02-18] MEDS ORDERED: GABA300C16 GTB (12:09)
--- NOTE | 2019-02-18 12:10 | PDOCDIS ---
Discharge Instructions DIAGNOSIS Discharge Diagnosis 1. low back pain CONDITION [id number] Patient Condition: [id number] Good HOME CARE INSTRUCTIONS: [id number] Diet Instructions: [id number] Reduced Calorie ACTIVITY: [id number] Activity Restrictions: [id number] Slowly Increase Activity FOLLOW UP/APPOINTMENTS Follow-up Plan 1. pcp 1-[address] eubanks after mri 3. mri to be arranged LALITA SILVER MD Feb 18, 2019 12:10
--- NOTE | 2019-02-18 12:13 | DS ---
Date/Time of Note Date/Time of Note DATE: 02/18/19 TIME: 12:11 Discharge Summary Admission/Discharge Info Admit Date/Time Feb 16, 2019 at 00:51 Discharge Date/Time Discharge Diagnosis 1. low back pain Patient Condition: Good Hospital Course patient admitted with low back pain, was unable to have inpatient mri due to not fitting in machine at her weight. CT demonstarted spinal stenosis and likely neuroforaminal stenosis. She was seen by Dr Eubanks (neurosurg) and was started on medical therapy and responded quite well. She is at this time able to ambulate independently and with controlled pain. She will be discharged to home. She is recommended to get MRI as an outpatietn to further clarify her back pathology and to decide if surgery will be required. Home Meds Active Scripts Methylprednisolone* (Medrol* DOSE PACK) 4 Mg/Dose-Pack Tab.ds.pk, 4 MG PO . DIRECTED for 7 Days, PACKET Prov:LALITA SILVER MD 02/18/19 Pantoprazole* (Pantoprazole*) 40 Mg Tablet.dr, 40 MG PO DAILY@06 for 14 Days discuss with your primary care doctor if this needs to be continued after 2 weeks Prov:LALITA SILVER MD 02/18/19 Ibuprofen* (Motrin*) 800 Mg Tab, 800 MG NGT Q8 for 14 Days, #42 TAB take 1 tab 3x a day for 2 weeks NOT just if you have pain Prov:LALITA SILVER MD 02/18/19 Gabapentin* (Gabapentin*) 300 Mg Capsule, 300 MG GTB BID for 30 Days, #60 CAP discuss if this medication needs to be adjusted or continued with your primary care docotor Prov:LALITA SILVER MD 02/18/19 Discontinued Reported Medications Vit/Fe Fumarate/Fa ( 1-1 Tablet) 1 Tab Tablet, 1 TAB PO DAILY 11/19/11 Discontinued Scripts Methylprednisolone* (Medrol* DOSE PACK) 4 Mg/Dose-Pack Tab.ds.pk, 4 MG PO . DIRECTED for 5 Days, PACKET Prov:ANH RYAN PA-C 02/14/19 Meloxicam* (Meloxicam*) 7.5 Mg Tablet, 7.5 MG PO DAILY, #30 TAB Prov:ANH RYAN PA-C 02/14/19 Sulfamethoxazole/Trimethoprim* (Bactrim Ds* Tablet) 1 Each Tablet, 1 TAB PO BID, #14 TAB Prov:MARIE HALE PA-C 02/05/19 Follow-up Plan 1. pcp 1-[address] eubanks after mri 3. mri to be arranged Primary Care Provider Not On Staff Doctor Pending Labs Laboratory Tests Test 02/18/19 07:04 White Blood Count 14.9 10^3/ul (4.8-10.8) Red Blood Count 4.78 10^6/ul (4.20-5.40) Hemoglobin 13.3 g/dl (12.0-16.0) Hematocrit 39.8 % (37.0-47.0) Mean Corpuscular Volume 83.3 fl (82.0-101.0) Mean Corpuscular Hemoglobin 27.8 pg (29.0-33.0) Mean Corpuscular Hemoglobin Concent 33.4 g/dl (32.0-37.0) Red Cell Distribution Width 13.4 % (11.5-14.5) Platelet Count 226 10^3/UL (140-415) Mean Platelet Volume 12.0 fl (7.4-10.4) Immature Granulocytes % 1.900 % (0.001-0.429) Neutrophils % 84.9 % (39.0-77.0) Lymphocytes % 8.9 % (15.0-51.0) Monocytes % 4.1 % (0.0-11.0) Eosinophils % 0.0 % (0.0-7.0) Basophils % 0.2 % (0.0-2.0) Nucleated Red Blood Cells % 0.0 /100WBC (0.0-0.0) Immature Granulocytes # 0.280 10^3/ul (0.0-0.031) Neutrophils # 12.7 10^3/ul (1.6-7.5) Lymphocytes # 1.3 10^3/ul (0.8-2.9) Monocytes # 0.6 10^3/ul (0.3-0.9) Eosinophils # 0.0 10^3/ul (0.0-0.5) Basophils # 0.0 10^3/ul (0.0-0.1) Nucleated Red Blood Cells # 0.0 10^3/ul (0.0-0.0) Sodium Level 139 mmol/L (135-144) Potassium Level 4.3 mmol/L (3.5-5.1) Chloride Level 104 mmol/L (97-110) Carbon Dioxide Level 26 mmol/L (21-31) Anion Gap 9 (5-13) Blood Urea Nitrogen 27 mg/dl (7-20) Creatinine 0.96 mg/dl (0.44-1.00) Est Glomerular Filtrat Rate mL/min > 60 mL/min (>60) Glucose Level 221 mg/dl (70-220) Calcium Level 9.2 mg/dl (8.4-10.2) Phosphorus Level 4.0 mg/dl (2.5-4.9) Magnesium Level 2.2 mg/dl (1.7-2.5) Total Bilirubin 0.4 mg/dl (0.2-1.3) Direct Bilirubin 0.00 mg/dl (0.00-0.20) Indirect Bilirubin 0.4 mg/dl (0-1.1) Aspartate Amino Transf (AST/SGOT) 17 IU/L (15-46) Alanine Aminotransferase (ALT/SGPT) 33 IU/L (13-69) Alkaline Phosphatase 59 IU/L (42-121) Total Protein 7.4 g/dl (6.1-8.1) Albumin 3.9 g/dl (3.3-4.9) Globulin 3.50 g/dl (1.3-3.2) Albumin/Globulin Ratio 1.11 LALITA SILVER MD Feb 18, 2019 12:12
[2019-02-18 15:05] VITALS: BP 98/57; PULSE 58; RESP 18
[2019-02-19] MEDS ORDERED: METHYLPREDNISOLONE 4 MG TAB PO SCH ×4 (07:30→21:00)
[2019-02-20] MEDS ORDERED: METHYLPREDNISOLONE 4 MG TAB PO SCH (21:00)
== END 2019-02-18 17:23 | disposition home or self-care (01) | DRG 552 ==
LOC: E/R 19:43 → PP2 02-16 00:51 → OBSVTOIN 02-18 08:26
PROVIDERS: ADMIT Internal Medicine; ATTEND Internal Medicine
DX: M51.17 Intervertebral disc disorders with radiculopathy, lumbosacral region (principal); Z68.42 Body mass index [BMI] 45.0-49.9, adult; M48.07 Spinal stenosis, lumbosacral region; R20.0 Anesthesia of skin; E66.01 Morbid (severe) obesity due to excess calories
CPT/HCPCS: 36415; 70450; 71045; 72131; 80048; 80053; 80307; 81001; 81025; 83735; 84100; 84484; 85025; 85610; 85651; 85730; 86140; 93005; 96374; 96375; 97116; 97162; G0378; J1100; J1644; J1885; J2270; J2405; J7509